=== PATIENT | male | born 1985 | race Caucasian/White ===

== ENCOUNTER 2021-03-04 13:50 | Emergency (ER) | payer OTHER ==
[2021-03-04] MEDS ORDERED: SUBLIMAZE 100 MCG/2 ML IV ONE (14:04)
[2021-03-04] MEDS ORDERED: Zofran 4 MG/2 ML VIAL IV ONE (14:04)
[2021-03-04] MEDS ORDERED: Sodium Chloride 0.9% 1000 ML 1,000 ML IV STA (14:04)
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
[2021-03-04 15:01] LABS: Absolute Neutrophil Ct (ANC) 6.81 (1.4-6.9); BASOPHIL % 0.3 % (0.0-0.4); Basophil (Absolute #) 0.03 (0-0.4); Eosinophil (Absolute #) 0.18 (0-0.5); Hematocrit 47.7 % (42-50); Hemoglobin 16.2 gm/dl (12.5-18.0); Lymphocyte (Absolute #) 1.43 (1.0-4.6); Lymphocytes % 15.8 % (24.0-44.0); Mean Cell Volume 99.6 fl (78-100); Mean Corpuscular Hemoglobin 33.8 pg (26-32); Mean Platelet Volume 10.3 fl (7.5-11.0); Monocytes % 6.6 % (0.0-12.0); Neutrophil % 75.3 % (36.0-66.0); Platelet Count 255 K/mm3 (150-450); Red Blood Count 4.79 M/mm3 (4.1-5.6); White Blood Count 9.1 K/mm3 (4.0-10.5)
[2021-03-04] MEDS ORDERED: ZOFRAN ODT 4 MG PO ONE (15:06)
[2021-03-04] MEDS ORDERED: ZOFRAN ODT 4 MG ONE (15:07)
[2021-03-04] MEDS ORDERED: SUBLIMAZE 100 MCG/2 ML ONE (15:08)
[2021-03-04 15:12] LABS: INR 1.1 (0.8-3.0); PROTIME 12.4 SECONDS (8.83-12.87)
[2021-03-04 15:15] LABS: PTT 28.1 SECONDS (24.1-36.1)
[2021-03-04 15:16] LABS: ALBUMIN 4.9 g/dL (3.5-5.0); ALKALINE PHOSPHATASE 81 U/L (38-126); AMYLASE 135 U/L (30-110); ANION GAP 13.6 MEQ/L (5-15); BLOOD UREA NITROGEN 14 mg/dL (9-20); CHLORIDE 101 mmol/L (98-107); Calcium 9.9 mg/dL (8.4-10.2); Carbon Dioxide 24 mmol/L (22-30); Creatinine 1 0.89 mg/dL (0.66-1.25); EST GLOMERULAR FILTRATION RATE > 60.0 ML/MIN; Glucose 92 mg/dL (74-106); LIPASE 340 U/L (23-300); Potassium 3.6 mmol/L (3.5-5.1); SGOT/AST 55 U/L (17-59); SGPT/ALT 32 U/L (0-50); SODIUM 136 mmol/L (137-145); Total Protein 7.6 g/dL (6.3-8.2)
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
[2021-03-04] MEDS ORDERED: MORPHINE SULFATE 4 MG INJ IM ONE (16:17)
[2021-03-04] MEDS ORDERED: MORPHINE SULFATE 4 MG INJ ONE (16:19)
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
[2021-03-04 17:10] VITALS: BP 141/86; PULSE 109
[2021-03-04 18:25] VITALS: O2SAT 99
== END 2021-03-04 18:08 | disposition home or self-care (01) ==
LOC: ED 13:50
DX: S06.0X1A Concussion with loss of consciousness of 30 minutes or less, initial encounter (principal); S20.212A Contusion of left front wall of thorax, initial encounter; S16.1XXA Strain of muscle, fascia and tendon at neck level, initial encounter; V89.2XXA Person injured in unspecified motor-vehicle accident, traffic, initial encounter
CPT/HCPCS: 36415; 70450; 71250; 72125; 72128; 72131; 73030; 73564; 74176; 80053; 82150; 83605; 83690; 84484; 85025; 85610; 85730; 93005; 96372; 99285; J2270; J3010; Q0162

== ENCOUNTER 2022-03-08 07:38 | Observation (INO) | payer OTHER ==
[2022-03-08] MEDS ORDERED: BABY ASPIRIN 81 MG CHEW PO ONE (07:53)
--- NOTE | 2022-03-08 07:54 | ERPHSYRPT ---
- History of Present Illness Time Seen by Provider: 03/08/22 07:53 Historian: patient Exam Limitations: no limitations Physician History: This is a 37-year-old white male alcoholic who had been sober for nearly 8 years. He is under a lot of stress and approxi-5 to 6 weeks ago he began drinking heavily again. He presents via ambulance service with chest pain complaints. He states that the chest pain is anterior without radiation and describes it as a sharp shooting pain. Patient states the chest pain has been intermittent but became more constant and severe this morning. Last night, approximately 930 he had his last drink of alcohol. Patient was found by police in a ditch and was intoxicated heavily. This morning, his chest pain was constant severe. He is depressed and anxious and under a lot of stress and asked the ambulance service to bring him to the emergency room for evaluation. Patient has a history of rheumatic fever in the past as well as known right bundle branch block. He has no known coronary artery disease. Patient states that he is not suicidal and he is not homicidal. He is not on any medication. He also states that the chest pain began approximately 5 weeks ago after he began drinking alcohol heavily again. Timing/Duration: today (Pain became worse), intermittent, worse Quality: sharpness, stabbing Location: central Chest Pain Radiation: no radiation Severity of Pain-Max: moderate Severity of Pain-Current: moderate Modifying Factors: Improves With: other (Hurts worse when taking a deep breath) Associated Symptoms: hurts to breathe, No nausea, No vomiting, No abdominal pain, No shortness of breath, No cough, No chills, No fever Prior Chest Pain/Cardiac Workup: no prior cardiac workup Nitro Today/Relief: no nitro taken today Aspirin Treatment Today: no aspirin today Allergies/Adverse Reactions: Penicillins Allergy (Severe, Verified 03/08/22 07:58) milk Allergy (Intermediate, Verified 03/08/22 07:58) Hx Tetanus, Diphtheria Vaccination/Date Given: No Hx Influenza Vaccination/Date Given: No Hx Pneumococcal Vaccination/Date Given: No Travel Risk - International Travel Have you traveled outside of the country in past 3 weeks: No - Coronavirus Screening Are you exhibiting any of the following symptoms?: No Close contact with a COVID-19 positive Pt in past 14-21 Days: No - Vaccine Status Have you recieved a Covid-19 vaccination: No - Review of Systems Constitutional: No Symptoms Eyes: No Symptoms Ears, Nose, & Throat: No Symptoms Respiratory: No Symptoms Cardiac: Chest Pain Abdominal/Gastrointestinal: No Symptoms Genitourinary Symptoms: No Symptoms Musculoskeletal: No Symptoms Skin: No Symptoms Neurological: No Symptoms Psychological: No Symptoms Endocrine: No Symptoms Hematologic/Lymphatic: No Symptoms Immunological/Allergic: No Symptoms All Other Systems: Reviewed and Negative - Past Medical History Pertinent Past Medical History: Yes Other Medical History: rheumatic fever 2014, bilateral inguinal hernia. right bundle branch block - Past Surgical History Past Surgical History: Yes (bilateral inguinal hernia repa) Cardiac: No Pertinent History, Other Respiratory: No Pertinent History Gastrointestinal: No Pertinent History Genitourinary: No Pertinent History Musculoskeletal: No Pertinent History Male Surgical History: No Pertinent History - Social History Smoking Status: Current every day smoker How long have you smoked: 11 Drug Use: marijuana - Nursing Vital Signs Nursing Vital Signs: Initial Vital Signs Pulse Rate 113 H 03/08/22 07:40 Respiratory Rate 18 03/08/22 07:40 Blood Pressure 134/92 03/08/22 07:40 Pain Scale Pain Intensity 8 - Physical Exam General Appearance: mild distress, alert, anxiety, thin Eye Exam: PERRL/EOMI, eyes nml inspection Ears, Nose, Throat Exam: normal ENT inspection, moist mucous membranes Neck Exam: normal inspection, non-tender, supple, full range of motion Respiratory Exam: normal breath sounds, chest tenderness, lungs clear, airway intact, No respiratory distress Cardiovascular Exam: tachycardia Gastrointestinal/Abdomen Exam: soft, normal bowel sounds, No tenderness Rectal Exam: not done Back Exam: normal inspection, normal range of motion, No CVA tenderness Extremity Exam: normal inspection, normal range of motion, pelvis stable Neurologic Exam: alert, oriented x 3, cooperative, 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 Are no acute ischemic changes.) Ordered Tests: Active Orders 24 hr Category Date Time Status Geosciences Faculty Member STAT Care 03/08/22 07:54 Active Clean Catch Urine Specimen STAT Care 03/08/22 07:55 Active EKG-ER Only STAT Care 03/08/22 07:53 Active IV Insertion STAT Care 03/08/22 07:53 Active Pulse Oximetry (ED) STAT Care 03/08/22 07:53 Active CHEST 1 VIEW (PORTABLE) Stat Exams 03/08/22 07:54 Completed CBC W DIFF Stat Lab 03/08/22 08:10 Completed CMP Stat Lab 03/08/22 08:10 Completed D-DIMER QUANTITATIVE Stat Lab 03/08/22 08:10 Completed ETHYL ALCOHOL Stat Lab 03/08/22 08:10 Completed TROPONIN Q3H Lab 03/08/22 08:10 Completed TROPONIN Q3H Lab 03/08/22 11:00 Ordered TROPONIN Q3H Lab 03/08/22 14:00 Ordered TROPONIN Q3H Lab 03/08/22 17:00 Ordered TROPONIN Q3H Lab 03/08/22 20:00 Ordered Urine Triage Profile Stat Lab 03/08/22 Ordered Medication Summary Discontinued Medications Generic Name Dose Route Start Last Admin Trade Name Freq PRN Reason Stop Dose Admin Aspirin 324 mg 03/08/22 07:53 03/08/22 08:30 Aspirin 81 Mg Tab.Chew PO 03/08/22 07:54 324 mg STAT ONE Administration Aspirin Confirm 03/08/22 08:28 Aspirin 81 Mg Tab.Chew Administered 03/08/22 08:29 Dose 324 mg .ROUTE .STK-MED ONE Methylprednisolone Sodium 0 mg 03/08/22 08:12 03/08/22 08:31 Succinate 125 mg/ Sterile IV 03/08/22 08:13 125 mg Water 2 ml STAT ONE Administration Sodium Chloride 1,000 mls @ 999 mls/hr 03/08/22 08:12 03/08/22 08:31 Sodium Chloride 0.9% 1000 Ml IV 03/08/22 09:12 999 mls/hr .Q1H1M STA Administration Sodium Chloride Confirm 03/08/22 08:29 Sodium Chloride 0.9% 1000 Ml Administered 03/08/22 08:30 Dose 1,000 mls @ ud .ROUTE .STK-MED ONE Lorazepam 1 mg 03/08/22 08:12 03/08/22 08:31 Lorazepam 2 Mg/1 Ml 2 Mg Vial IV 03/08/22 08:13 1 mg STAT ONE Administration Lorazepam Confirm 03/08/22 08:28 Lorazepam 2 Mg/1 Ml 2 Mg Vial Administered 03/08/22 08:29 Dose 2 mg .ROUTE .STK-MED ONE Methylprednisolone Sodium Succinate Confirm 03/08/22 08:29 Methylprednis Sod Succ 125 Mg/2 Ml Vial Administered 03/08/22 08:30 Dose 125 mg .ROUTE .STK-MED ONE Sterile Water Confirm 03/08/22 08:27 Water For Injection,Sterile 10 Ml Vial Administered 03/08/22 08:28 Dose 10 ml IJ .STK-MED ONE Lab/Rad Data: Laboratory Result Diagrams 03/08/22 08:10 03/08/22 08:10 Laboratory Results 03/08/22 03/08/22 03/08/22 Range/Units 08:10 08:10 08:10 WBC (4.0-10.5) x10^3/uL RBC (4.1-5.6) x10^6/uL Hgb (12.5-18.0) g/dL Hct (42-50) % MCV (78-100) fL MCH (26-32) pg MCHC (32-36) g/dL RDW (11.5-14.0) % Plt Count (150-450) x10^3/uL MPV (7.5-11.0) fL Gran % (36.0-66.0) % Immature Gran % (Auto) (0.00-0.4) % Nucleat RBC Rel Count (0.00-0.1) % Eos # (Auto) (0-0.5) x10^3/uL Immature Gran # (Auto) (0.00-0.03) x10^3u/L Absolute Lymphs (auto) (1.0-4.6) x10^3/uL Absolute Monos (auto) (0.0-1.3) x10^3/uL Absolute Nucleated RBC (0.00-0.01) x10^3u/L Lymphocytes % (24.0-44.0) % Monocytes % (0.0-12.0) % Eosinophils % (0.00-5.0) % Basophils % (0.0-0.4) % Absolute Granulocytes (1.4-6.9) x10^3/uL Basophils # (0-0.4) x10^3/uL D-Dimer 0.20 (0.0-0.50) mg/L Sodium (137-145) mmol/L Potassium (3.5-5.1) mmol/L Chloride (98-107) mmol/L Carbon Dioxide (22-30) mmol/L Anion Gap (5-15) MEQ/L BUN (9-20) mg/dL Creatinine (0.66-1.25) mg/dL Estimated GFR ML/MIN Glucose (74-106) mg/dL Calcium (8.4-10.2) mg/dL Total Bilirubin (0.2-1.3) mg/dL AST (17-59) U/L ALT (0-50) U/L Alkaline Phosphatase (38-126) U/L Troponin I 0.013 (0.000-0.034) ng/mL Serum Total Protein (6.3-8.2) g/dL Albumin (3.5-5.0) g/dL Ethyl Alcohol 97 H (0-10) mg/dL 03/08/22 03/08/22 Range/Units 08:10 08:10 WBC 8.1 (4.0-10.5) x10^3/uL RBC 4.28 (4.1-5.6) x10^6/uL Hgb 14.9 (12.5-18.0) g/dL Hct 42.6 (42-50) % MCV 99.5 (78-100) fL MCH 34.8 H (26-32) pg MCHC 35.0 (32-36) g/dL RDW 12.9 (11.5-14.0) % Plt Count 233 (150-450) x10^3/uL MPV 10.0 (7.5-11.0) fL Gran % 79.9 H (36.0-66.0) % Immature Gran % (Auto) 0.4 (0.00-0.4) % Nucleat RBC Rel Count 0.0 (0.00-0.1) % Eos # (Auto) 0.14 (0-0.5) x10^3/uL Immature Gran # (Auto) 0.03 (0.00-0.03) x10^3u/L Absolute Lymphs (auto) 0.86 L (1.0-4.6) x10^3/uL Absolute Monos (auto) 0.54 (0.0-1.3) x10^3/uL Absolute Nucleated RBC 0.00 (0.00-0.01) x10^3u/L Lymphocytes % 10.7 L (24.0-44.0) % Monocytes % 6.7 (0.0-12.0) % Eosinophils % 1.7 (0.00-5.0) % Basophils % 0.6 (0.0-0.4) % Absolute Granulocytes 6.44 (1.4-6.9) x10^3/uL Basophils # 0.05 (0-0.4) x10^3/uL D-Dimer (0.0-0.50) mg/L Sodium 140 (137-145) mmol/L Potassium 4.5 (3.5-5.1) mmol/L Chloride 105 (98-107) mmol/L Carbon Dioxide 25 (22-30) mmol/L Anion Gap 14.9 (5-15) MEQ/L BUN 11 (9-20) mg/dL Creatinine 0.79 (0.66-1.25) mg/dL Estimated GFR > 60.0 ML/MIN Glucose 97 (74-106) mg/dL Calcium 9.4 (8.4-10.2) mg/dL Total Bilirubin 1.10 (0.2-1.3) mg/dL AST 38 (17-59) U/L ALT 33 (0-50) U/L Alkaline Phosphatase 65 (38-126) U/L Troponin I (0.000-0.034) ng/mL Serum Total Protein 7.3 (6.3-8.2) g/dL Albumin 4.4 (3.5-5.0) g/dL Ethyl Alcohol (0-10) mg/dL - Progress Progress: improved, re-examined Air Movement: good Progress Note: 03/08/22 09:10 Chest x-ray shows no acute cardiopulmonary process. Medical decision making: This patient does not have any acute cardiac issue. He has depression and anxiety. He also has acute alcoholism. He wants to go into rehab. He is not suicidal homicidal. We will treat his chest pain as pericarditis and will make arrangements for him to be evaluated for alcohol rehab. Counseled pt/family regarding: lab results, diagnosis, need for follow-up, rad results - Departure Departure Disposition: Home Clinical Impression: Pericarditis, Chronic alcoholism, Depression, Anxiety Condition: Stable Critical Care Time: No Referrals: DOCTOR,NO FAMILY [Primary Care Provider] - Follow up/PCP as directed Additional Instructions: Avoid alcohol. Follow-up with mental health/alcohol rehab facility that we made appointments for you. Take your medication as prescribed. Prescriptions: Prednisone 10 mg [Deltasone 10 mg] 10 mg PO TID #12 tablet Famotidine 20 mg [Pepcid 20 MG] 20 mg PO DAILY #10 tablet
[2022-03-08] MEDS ORDERED: solu-MEDROL 125 MG, Sterile H2O 10 ml 2 ML IV ONE ×2 (08:12)
[2022-03-08] MEDS ORDERED: Ativan 2 MG/1 ML VIAL IV ONE ×7 (08:12→17:58)
[2022-03-08] MEDS ORDERED: Sodium Chloride 0.9% 1000 ML 1,000 ML IV STA (08:12)
[2022-03-08] MEDS ORDERED: Sterile H2O 10 ml IJ ONE (08:27)
[2022-03-08] MEDS ORDERED: Ativan 2 MG/1 ML VIAL ONE ×5 (08:28→17:20)
[2022-03-08] MEDS ORDERED: BABY ASPIRIN 81 MG CHEW ONE (08:28)
[2022-03-08] MEDS ORDERED: Sodium Chloride 0.9% 1000 ML 1,000 ML ONE (08:29)
[2022-03-08] MEDS ORDERED: solu-MEDROL ONE (08:29)
[2022-03-08 08:35] LABS: Absolute Neutrophil Ct (ANC) 6.44 x10^3/uL (1.4-6.9); Basophil (Absolute #) 0.05 x10^3/uL (0-0.4); Eosinophil % 1.7 % (0.00-5.0); Eosinophil (Absolute #) 0.14 x10^3/uL (0-0.5); Hematocrit 42.6 % (42-50); Hemoglobin 14.9 g/dL (12.5-18.0); Lymphocyte (Absolute #) 0.86 x10^3/uL (1.0-4.6); Lymphocytes % 10.7 % (24.0-44.0); Mean Cell Volume 99.5 fL (78-100); Mean Corpuscular Hemoglobin 34.8 pg (26-32); Monocyte (Absolute #) 0.54 x10^3/uL (0.0-1.3); Monocytes % 6.7 % (0.0-12.0); Neutrophil % 79.9 % (36.0-66.0); Platelet Count 233 x10^3/uL (150-450); Red Blood Count 4.28 x10^6/uL (4.1-5.6); Red Cell Distribution Width 12.9 % (11.5-14.0); White Blood Count 8.1 x10^3/uL (4.0-10.5)
[2022-03-08 08:48] LABS: ALBUMIN 4.4 g/dL (3.5-5.0); ALKALINE PHOSPHATASE 65 U/L (38-126); ANION GAP 14.9 MEQ/L (5-15); BLOOD UREA NITROGEN 11 mg/dL (9-20); CHLORIDE 105 mmol/L (98-107); Calcium 9.4 mg/dL (8.4-10.2); Carbon Dioxide 25 mmol/L (22-30); Creatinine 1 0.79 mg/dL (0.66-1.25); EST GLOMERULAR FILTRATION RATE > 60.0 ML/MIN; Glucose 97 mg/dL (74-106); Potassium 4.5 mmol/L (3.5-5.1); SGOT/AST 38 U/L (17-59); SGPT/ALT 33 U/L (0-50); SODIUM 140 mmol/L (137-145); Total Protein 7.3 g/dL (6.3-8.2)
--- NOTE | 2022-03-08 09:08 | XRAY ---
Indication: Chest pain, short of breath, and anxiety. Comparison: Negative CT chest exam March 04, 2021. Portable chest demonstrates normal heart and lungs. Bony thorax intact. No new/acute findings.
[2022-03-08] MEDS ORDERED: Ativan 2 MG/1 ML VIAL IM ONE (14:19)
[2022-03-08] MEDS ORDERED: Compazine 10 MG/2 ML IV ONE (16:12)
[2022-03-08 16:44] LABS: INFLUENZA A NEGATIVE (NEGATIVE); INFLUENZA B NEGATIVE (NEGATIVE); RESPIRATORY SYNCTIAL VIRUS NEGATIVE (Negative); SARS-CoV-2 Xpert Express NEGATIVE (NEGATIVE)
[2022-03-08] MEDS ORDERED: Compazine 10 MG/2 ML ONE (16:47)
[2022-03-08] MEDS ORDERED: NON-FORMULARY ITEM PO ONE (17:00)
[2022-03-08] MEDS ORDERED: Sodium Chloride 0.9% 1000 ML 1,000 ML IV SCH ×2 (17:00→17:36)
[2022-03-08] MEDS ORDERED: TYLENOL 325 MG PO PRN (17:36)
[2022-03-08] MEDS ORDERED: Ativan 2 MG/1 ML VIAL IV PRN (17:36)
[2022-03-08] MEDS ORDERED: Compazine 10 MG/2 ML IV PRN (17:36)
[2022-03-08] MEDS: PROTONIX 40 MG IV IV SCH (18:53)
[2022-03-08] MEDS ORDERED: Nicoderm CQ 21 MG TOP SCH (20:30)
[2022-03-08] MEDS: Ativan 2 MG/1 ML VIAL IV PRN (20:56)
[2022-03-09] MEDS: Ativan 2 MG/1 ML VIAL IV PRN ×7 (02:18→11:31)
[2022-03-09] MEDS ORDERED: Ativan 2 MG/1 ML VIAL IV ONE (02:27)
[2022-03-09 02:39] LABS: Amphetamine,Urine NEGATIVE (NEGATIVE); Barbiturate,Urine NEGATIVE (NEGATIVE); Benzodiazepine,Urine NEGATIVE (NEGATIVE); Cocaine,Urine NEGATIVE (NEGATIVE); Methadone,Urine NEGATIVE (NEGATIVE); Opiate,Urine NEGATIVE (NEGATIVE); PCP,Urine NEGATIVE (NEGATIVE); THC,Urine POSITIVE (NEGATIVE)
[2022-03-09] MEDS: MORPHINE SULFATE 4 MG INJ IV PRN ×3 (02:39→11:00)
[2022-03-09 03:32] LABS: Mucus SLIGHT /HPF (NEGATIVE); RBC 0-2 /HPF (0-2)
[2022-03-09 03:33] LABS: Appearance CLEAR (CLEAR); Bilirubin NEGATIVE (NEGATIVE); Glucose NEGATIVE (NEGATIVE); Ketones NEGATIVE (NEGATIVE); Protein,Urine Dip NEGATIVE (Negative); RBC NEGATIVE Ery/ul (0-5); Specific Gravity >=1.030 (1.005-1.025)
[2022-03-09 03:34] LABS: Dipstick done @ ? MAIN LAB; Nitrite NEGATIVE (NEGATIVE); Urine Cultured Indicated? NO; Urobilinogen 0.2 mg/dL (0-1)
[2022-03-09] MEDS ORDERED: NON-FORMULARY ITEM PO ONE (08:00)
[2022-03-09] MEDS ORDERED: Nicoderm CQ 21 MG ONE (08:13)
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
--- NOTE | 2022-03-09 08:52 | XRAY ---
Indication: Pain following fall. Comparison: None 3 view right shoulder obtained. No bony, articular, or soft tissue abnormalities.
[2022-03-09] MEDS: PROTONIX 40 MG IV IV SCH (09:34)
[2022-03-09 10:59] VITALS: BP 134/99; PULSE 124; O2SAT 99
[2022-03-09] MEDS ORDERED: Nicoderm CQ 21 MG TOP SCH (22:00)
[2022-03-10] MEDS ORDERED: Nicoderm CQ 21 MG TOP SCH (10:00)
== END 2022-03-09 11:35 ==
LOC: ED 07:38 → MED SURG 17:25 → ICU 03-09 02:51
PROVIDERS: ADMIT Family Medicine; ATTEND Family Medicine
DX: F10.232 Alcohol dependence with withdrawal with perceptual disturbance (principal); R07.9 Chest pain, unspecified; F90.9 Attention-deficit hyperactivity disorder, unspecified type; F19.10 Other psychoactive substance abuse, uncomplicated; F41.9 Anxiety disorder, unspecified; F10.20 Alcohol dependence, uncomplicated; M25.519 Pain in unspecified shoulder; W06.XXXA Fall from bed, initial encounter; Z72.0 Tobacco use; Z79.899 Other long term (current) drug therapy; Z20.828 Contact with and (suspected) exposure to other viral communicable diseases
CPT/HCPCS: 0241U; 36000; 36415; 71045; 73030; 80053; 80307; 81015; 84484; 85025; 85379; 93005; 93041; 94760; 96360; 96372; 96374; 96375; 96376; 99285; G0480; G0378; J2060; J2270; J2930; A9270-GY